=== PATIENT | female | born 1985 | race African-American/Black ===

== ENCOUNTER 2018-08-05 09:54 | Emergency (ER) | payer MEDICAID ==
[~2018-08-05] VITALS: Ht 170.2 cm; Wt 86.2 kg
[2018-08-05 11:40] VITALS: BP 129/68
== END 2018-08-05 12:14 | disposition home or self-care (01) ==
LOC: ER 09:54
DX: H66.92 Otitis media, unspecified, left ear (principal); K04.7 Periapical abscess without sinus

== ENCOUNTER 2019-02-10 17:47 | Emergency (ER) | payer MEDICAID ==
[~2019-02-10] VITALS: Ht 170.2 cm; Wt 87.1 kg
[2019-02-10 18:07] VITALS: BP 108/69
[2019-02-10 18:33] LABS: Urine Bacteria NONE SEEN /hpf (None Seen); Urine Blood 1+ /uL (Negative); Urine Mucus FEW (None Seen); Urine Specific Gravity 1.026 (1.001-1.035); Urine WBC 114 /hpf (0 - 5)
[2019-02-10 18:47] LABS: Eosinophils # (auto) 0.1 uL; Hemoglobin 11.2 g/dL (12.2-16.2); Mean Corpuscular Hgb Conc. 32.2 g/dL (32.0-36.0); Monocytes # (auto) 0.5 uL; Neutrophils # (auto) 4.4 uL; Nucleated Red Blood Cells % 0.1 %
[2019-02-10 18:51] LABS: Basophils # (auto) 0 uL; Basophils % (auto) 0.7 % (0.0-2.0); Eosinophils % (auto) 0.9 % (0.0-7.0); Hematocrit 34.7 % (36.0-46.0); Lymphocytes # (auto) 1.4 uL; Lymphocytes % (auto) 22.4 % (10.0-50.0); Mean Corpuscular Volume 77.5 fL (80.0-100.0); Monocytes % (auto) 7.4 % (0.0-12.0); Neutrophils % (auto) 68.6 % (37.0-80.0); Platelet Count (auto) 227 10^3/uL (140-450); Red Blood Cells 4.47 10^6/uL (4.0-5.20); White Blood Cell 6.5 10^3/uL (4.4-10.8)
[2019-02-10 19:01] LABS: Albumin 3.1 g/dL (3.4-5.0); Potassium 4.1 mmol/L (3.5-5.1)
[2019-02-10 19:05] LABS: BUN/Creatinine Ratio 14.9; Bilirubin, Total 0.4 mg/dL (0.2-1.0); Total Protein 7.7 g/dL (6.4-8.2)
== END 2019-02-11 01:18 | disposition left against medical advice (07) ==
LOC: ER 17:47
DX: N93.9 Abnormal uterine and vaginal bleeding, unspecified (principal); Z53.21 Procedure and treatment not carried out due to patient leaving prior to being seen by health care provider
CPT/HCPCS: 36415; 76805; 80053; 81001; 84702; 85025

== ENCOUNTER 2019-02-20 09:53 | Inpatient (IN) | payer MEDICAID ==
[~2019-02-20] VITALS: Ht 170.2 cm; Wt 87.1 kg
[2019-02-20 11:00] LABS: Urine Bacteria FEW /hpf (None Seen); Urine Blood 2+ /uL (Negative); Urine Specific Gravity 1.002 (1.001-1.035); Urine WBC 19 /hpf (0 - 5)
[2019-02-20] MEDS ORDERED: LACTATED RINGER'S 1,000 ML IV SCH (11:24)
[2019-02-20] MEDS ORDERED: LACT. RINGERS/OXYTOCIN 20UNITS 1,000 ML IV SCH (11:24)
[2019-02-20] MEDS ORDERED: DERMOPLAST 60ML BOTTLE TOP PRN (11:30)
[2019-02-20] MEDS ORDERED: WITCH HAZEL-GLYCERIN PAD TOP PRN (11:30)
[2019-02-20] MEDS ORDERED: LIDOCAINE 2%HCL (LOCAL ANESTH.) INJ 20ML MDV ID PRN (11:30)
[2019-02-20] MEDS ORDERED: PHISODERM TOP SOLN 240ML BTL TOP PRN (11:30)
[2019-02-20] MEDS ORDERED: CARBOPROST TROMETHAMINE 250 MCG/1ML VIAL IM PRN (11:30)
[2019-02-20] MEDS ORDERED: METHYLERGONOVINE MALEATE 0.2 MG/ML AMP IM PRN (11:30)
[2019-02-20] MEDS ORDERED: PROMETHAZINE HCL 25 MG/ML 1ML ONE (11:56)
[2019-02-20] MEDS: NALBUPHINE HCL 10 MG/1ml INJECTION IV PRN ×2 (12:00→15:00)
[2019-02-20 12:06] LABS: Basophils # (auto) 0 uL; Eosinophils # (auto) 0 uL; Lymphocytes # (auto) 0.9 uL
[2019-02-20 12:07] LABS: Basophils % (auto) 0.3 % (0.0-2.0); Eosinophils % (auto) 0.3 % (0.0-7.0); Hematocrit 33.7 % (36.0-46.0); Hemoglobin 10.9 g/dL (12.2-16.2); Mean Corpuscular Hemoglobin 25.5 pg (28.0-32.0); Mean Corpuscular Hgb Conc. 32.2 g/dL (32.0-36.0); Mean Corpuscular Volume 79.1 fL (80.0-100.0); Monocytes # (auto) 0.7 uL; Monocytes % (auto) 6.4 % (0.0-12.0); Neutrophils # (auto) 9.8 uL; Platelet Count (auto) 220 10^3/uL (140-450); Red Blood Cells 4.25 10^6/uL (4.0-5.20); White Blood Cell 11.6 10^3/uL (4.4-10.8)
[2019-02-20] MEDS: ceFAZolin 1GM/50ML 50 ML IV SCH ×2 (12:15→19:42)
[2019-02-20 12:26] LABS: Albumin 2.9 g/dL (3.4-5.0); BUN/Creatinine Ratio 12.3; Calcium 8.4 mg/dL (8.5-10.1); Potassium 3.6 mmol/L (3.5-5.1)
[2019-02-20 12:28] LABS: Red Cell Distribution Width 28.6 % (11.8-14.3)
[2019-02-20 12:34] LABS: Alcohol, Urine < 3.0 mg/dL (0-5); Amphetamine Screen, Urine NEGATIVE (NEGATIVE); Barbiturate Scree,Urine NEGATIVE (NEGATIVE); Benzodiazephine Screen, Urine NEGATIVE (NEGATIVE); Cannabinoid Screen, Urine NEGATIVE (NEGATIVE); Cocaine Screen, Urine NEGATIVE (NEGATIVE); Opiate Scree,Urine NEGATIVE (NEGATIVE); Phencyclidine Screen, Urine NEGATIVE (NEGATIVE)
[2019-02-20 12:36] LABS: Bilirubin, Total 0.3 mg/dL (0.2-1.0); INR < 0.93 (0.9-1.15); Partial Thromboplastin Time 28.8 sec (23.64-32.05); Total Protein 7.4 g/dL (6.4-8.2)
[2019-02-20] MEDS ORDERED: ACETAMINOPHEN 325 MG TAB PO PRN (17:30)
[2019-02-20 19:00] VITALS: BP 109/58
--- NOTE | 2019-02-20 19:00 | NUR ---
Ambulation: Patient OOB with standby assistance by RN. Patient ambulated to bathroom with steady gait. Patient able to void without difficulty. Pericare teaching provided with returned demonstration by patient. Clean gown provided and bed linen changed. Patient ambulated back to bed with steady gait and no distress noted.
--- NOTE | 2019-02-20 19:30 | NUR ---
IV removal IV to right hand DC'd with sterile technique, catheter fully intact. Pressure dressing applied to site. Patient tolerated procedure well.
--- NOTE | 2019-02-20 20:10 | NUR ---
Patient desires for baby to be cremated, options discussed with patient and patient verbalizes that she would like to use [facility]. Call made to [facility], arrangements made for baby to be picked up at approx 2300.
--- NOTE | 2019-02-20 20:35 | NUR ---
Patient informed of arrangements made with [facility] and informed of arrival time of approx 2300. Patient verbalizes understanding and agrees to plan of care.
[2019-02-20] MEDS ORDERED: diphenhdrAMINE HCL 25 MG CAP PO PRN (22:00)
[2019-02-20] MEDS: IBUPROFEN 600 MG TAB PO PRN (22:16)
[2019-02-20 22:30] VITALS: BP 107/59
--- NOTE | 2019-02-20 23:25 | NUR ---
[facility] solar manufacturer's representative arrives to birthplace to collect baby's remains. Release of remains paperwork signed by RN and [facility] solar manufacturer's representative, witnessed by 2 RNs. Copy of form provided to solar manufacturer's representative, solar manufacturer's representative departs with remains accompanied by security personnel.
[2019-02-21 02:30] VITALS: BP 93/53
[2019-02-21] MEDS ORDERED: PREN-153 OR (02:38)
--- NOTE | 2019-02-21 03:30 | NUR ---
Dr. Perez calls unit, updated on patient status, no new orders at this time.
[2019-02-21] MEDS: ceFAZolin 1GM/50ML 50 ML IV SCH (03:45)
--- NOTE | 2019-02-21 06:30 | NUR ---
REPORT: REPORT RECEIVED FROM PROGRAM CLINICIAN RN TO RESUME CARE OF PT.
[2019-02-21 07:00] VITALS: BP 108/59
--- NOTE | 2019-02-21 07:00 | NUR ---
OPEN: ASSESSMENT COMPLETE. SEE NURSING FLOW SHEET FOR UPDATED DETAILS.
[2019-02-21] MEDS: IBUPROFEN 600 MG TAB PO PRN (07:48)
--- NOTE | 2019-02-21 08:35 | NUR ---
MD VISIT: DR. RAMOS IN AT BEDSIDE. SPOKE TO PATIENT IN DETAIL ABOUT STATUS AT TIME AND FULLY AWARE OF STATUS AT TIME. MD DID OK FOR DISCHARGE HOME TODAY AND PATIENT AWARE. MD DID SPEAK TO PATIENT ABOUT FOLLOWING UP WITH PRIMARY CARE PROVIDER FOR COUNSELING AND SUPPORT. AWARE THAT DEPRESSION SCALE COMPLETE AND SCORE OF 8. MD AWARE THAT PATIENT DOES HAVE SUPPORT AT HOME.
--- NOTE | 2019-02-21 09:09 | NUR ---
SUPPORT: SPOKE TO PATIENT IN REGARDS TO SUPPORT AT HOME REGARDING DEMISE AND PATIENT REQUESTING TO FOLLOW UP FOR POSSIBLE COUNSELING. PATIENT CRYING BUT AFTER SPEAKING TO PATIENT, SITTING AT BEDSIDE WITH PATIENT AND DISCUSSING ALL OPTIONS FOR COUNSELING AND SUPPORT, PATIENT NO LONGER CRYING. PATIENT WOULD LIKE TO BE DISCHARGED HOME TODAY AND TO FOLLOW UP WITH HER INSURANCE COMPANY FOR SEEKING COUNSELING. PATIENT DOES NOT WANT TO WAIT FOR SOCIAL SERVICE CONSULT.
--- NOTE | 2019-02-21 09:38 | NUR ---
FAMILY: FAMILY IN AT BEDSIDE.
--- NOTE | 2019-02-21 10:00 | NUR ---
IV REMOVAL/CARE: IV REMOVED TO RIGHT FOREARM, 20G WITH CATHETER FULLY INTACT. PATIENT TOLERATED WELL. AFTER REMOVAL, FAMILY ASSISTED PATIENT TO REMOVE HOSPITAL GOWN AND TO GET DRESSED IN PERSONAL CLOTHES. PATIENT TOLERATED ACTIVITY WELL.
[2019-02-21 10:28] VITALS: BP 108/79
--- NOTE | 2019-02-21 10:28 | NUR ---
Discharge: Patient ambulated to vehicle with all personal belongings, accompanied by staff and family members. No distress noted at time of departure, no adverse changes in status since initial assessment. Patient instructed to call for follow-up appointment with Dr. Ignacio for 1-2 weeks and to seek counseling if needed. Aware that social service available to assist with coordinating for counseling but declining social service consult at time and requesting to call her insurance company on own. Memory box with all baby memory given. Aware of cremation and instructed to follow up with [facility].
--- NOTE | 2019-02-21 10:28 | NUR ---
Discharge: Discharge instructions given as ordered. Pt encouraged to follow up with STEAMER OPERATOR as instructed. All questions and concerns addressed. Patient verbalized understanding. Medication reconciliation completed and copy given to patient. Patient refused all vaccines to be given at this time. Patient encouraged to prepare to depart unit. Addendum: 02/21/19 at 1034 by Mary Camacho RN [id number], not [id number]
[2019-02-21] MEDS ORDERED: ceFAZolin 1GM/50ML 50 ML IV SCH (12:00)
--- NOTE | 2019-02-22 09:24 | NUR ---
barrel header 02/21/19-I did not receive a call regarding the social service consult for this patient.
[2019-02-23 06:16] LABS: RPR Non Reactive (Non Reactive)
[2019-02-23 13:06] LABS: Rubella Antibodies, IgG 4.28 index (Immune >0.99)
== END 2019-02-21 10:25 | disposition home or self-care (01) | DRG 560 ==
LOC: ER 10:01 → LDRP 10:43
PROVIDERS: ADMIT Obstetrics & Gynecology; ATTEND Obstetrics & Gynecology
PROC: 10E0XZZ Delivery of Products of Conception, External Approach (ICD-10-PCS; principal; 2019-02-21)
DX: O03.9 Complete or unspecified spontaneous abortion without complication (principal); Z3A.19 19 weeks gestation of pregnancy
CPT/HCPCS: 36415; 59409; 76805; 76815; 80053; 80307; 81001; 84112; 85025; 85610; 85730; 86592; 86703; 86762; 86850; 86900; 86901; 87340; 96365; 96366; 96374; G0378; J0690; J2590